=== PATIENT | female | born 1970 | race Caucasian/White ===

== ENCOUNTER → 2017-03-14 | Outpatient (CLI) | payer BC | END | disposition home or self-care (01) | LOC: C.PAPS 10:15 | PROVIDERS: ATTEND Obstetrics & Gynecology | DX: Z01.419 Encounter for gynecological examination (general) (routine) without abnormal findings (principal) ==

== ENCOUNTER → 2018-03-05 | Outpatient (CLI) | payer BC ==
--- NOTE | 2018-03-05 17:19 | DIAGNOSTIC IMAGING REPORT ---
SOFT TISS HEAD/NECK-THYROID CLINICAL HISTORY: 47 years-old Female with R22.1 Neck massPt with visible and palpable firm, nonmovable mas. Palpable abnormality of the upper mid neck COMPARISON: None available TECHNIQUE: Multiple real time sonographic images of the neck soft tissues were obtained accessing mar scale appearance and color doppler flow. FINDINGS: Within the area of concern within the left upper and mid neck within the area of concern there are several round and ovoid lesions present which suggest enlarged lymph nodes, largest of which measures 1.9 x 1.8 x 1.6 cm. This largest node demonstrates abnormal with thickened cortex width displaced echogenic fatty hilum noted. Several lymph nodes demonstrate maintained normal echogenic fatty roman. No drainable fluid collections. Imaged thyroid appears unremarkable. The right neck submandibular region a prominent nonenlarged lymph node measures 8 mm in short axis. IMPRESSION: Multiple enlarged lymph nodes are seen within the left neck within the area of palpable concern, largest of which measures up to 1.6 cm in short axis. Follow-up recommended. If symptoms persist, further correlation with FNA should be considered. The above report was generated using voice recognition software. It may contain grammatical, syntax or spelling errors. Electronically signed by: Constantino Booth M.D. 03/05/2018 5:17 PM Dictated Date/Time: 03/05/2018 5:08 PM
== END | disposition home or self-care (01) ==
LOC: C.ULTR 16:35
PROVIDERS: ATTEND Family Medicine
DX: R22.1 Localized swelling, mass and lump, neck (principal)

== ENCOUNTER → 2018-03-05 | Outpatient (CLI) | payer BC | END | disposition home or self-care (01) | LOC: C.LABSPEC 11:17 | PROVIDERS: ATTEND Family Medicine | DX: R07.0 Pain in throat (principal) ==

== ENCOUNTER → 2018-07-19 | Outpatient (CLI) | payer BC ==
[2018-07-19 10:50] LABS: HEMATOCRIT 39.2 % (37-47); HEMOGLOBIN 13.5 g/dL (12.0-16.0); MEAN CELL VOLUME 89.1 fL (80-100); MEAN CORPUSCULAR HEMOGLOBIN 30.7 pg (25-34); MEAN CORPUSCULAR HGB CONC 34.4 g/dl (32-36); MEAN PLATELET VOLUME 10.2 fL (7.4-10.4); PLATELET COUNT 323 K/uL (130-400); RED CELL DISTRIBUTION WIDTH CV 13.1 % (11.5-14.5); RED CELL DISTRIBUTION WIDTH SD 42.4 fL (36.4-46.3); WHITE BLOOD COUNT 3.84 K/uL (4.8-10.8)
[2018-07-19 11:11] LABS: ALBUMIN 3.7 gm/dl (3.4-5.0); ALKALINE PHOSPHATASE 47 U/L (45-117); ALT/SGPT 21 U/L (12-78); AST/SGOT 17 U/L (15-37); BLOOD UREA NITROGEN 13 mg/dl (7-18); CALCIUM 8.7 mg/dl (8.5-10.1); CARBON DIOXIDE 25 mmol/L (21-32); CHOLESTEROL 189 mg/dl (0-200); CREATININE 0.68 mg/dl (0.60-1.20); GLUCOSE 78 mg/dl (70-99); LDL CHOLESTEROL CALCULATED 105 mg/dl; SODIUM 139 mmol/L (136-145); TOTAL PROTEIN 7.3 gm/dl (6.4-8.2)
== END | disposition home or self-care (01) ==
LOC: C.LABBC 07:36
PROVIDERS: ATTEND Family Medicine
DX: Z00.00 Encounter for general adult medical examination without abnormal findings (principal); R53.83 Other fatigue